=== PATIENT | male | born 1965 | race Caucasian/White ===

== ENCOUNTER 2017-12-21 13:59 | Emergency (ER) | payer BC, OTHER ==
[2017-12-21 14:07] VITALS: TEMP 98.1
[2017-12-21] MEDS ORDERED: NS 1,000 ML IV ONE (14:13)
[2017-12-21] MEDS ORDERED: LORazepam 2 MG/ML INJ IVP ONE (14:13)
--- NOTE | 2017-12-21 14:13 | EDPHY ---
H & P Stated Complaint: fast heart rate/palpitations earlier today Time Seen by Provider: 12/21/17 14:13 HPI/ROS: HPI: This is a 52-year-old male who presents with Chief Complaint: fast heart rate/palpitations earlier today Location: Mid sternum Quality: Palpitations Duration: 3-5 hours prior to arrival Signs and Symptoms: no shortness of breath at rest, no shortness of breath on exertion, no cough, no chest pain, + cardiac awareness, no lower extremity edema , no wheezing, no orthopnea, no paroxysmal nocturnal dyspnea, no fever, no injury/trauma, no hemoptysis, no carpal pedal spasms, no nausea no vomiting, no diaphoresis Timing: Acute, lasted approximately 1 hr, resolved Severity: Moderate Context: Patient has a history asthma presents with a 2nd episode in 1 week ago of racing heart measures on his [employer] I phone 130-140 beats per minute after his spin class approximately 3-5 hours prior to arrival. He was accompanied by cardiac awareness and some chest pressure. Denies any fever/ shortness of breath/nausea/vomiting/diaphoresis/radiation of pain. Patient reports that he flew to [facility] approximately 1 week ago. When he was in his so tell room Wednesday evening he felt his heart rate racing which is similar to today. Again his heart rate was between 130-140 beats per minute. He admits he did not drink hardly any water that day. and him both report that he is under considerable stress with work. They own 2 software companies. Patient reports a similar incident happened approximately 8 years ago in [facility]. He had negative laboratory workup and an outpatient echocardiogram that was unremarkable per patient. Denies any family cardiac history. Modifying Factors: None Comment: ROS: see HPI Constitutional: No fever, no chills, no weight loss Eyes: No blurred vision Respiratory: No shortness of breath, no cough Cardiovascular: No chest pain,+ palpitations, no lower extremity edema Gastrointestinal: No nausea, no vomiting, no diarrhea Genitourinary: No dysuria Extremities: No myalgias Neurologic: No weakness, no numbness Skin: No rashes Hematologic: No bruising, no bleeding MEDICAL/SURGICAL/SOCIAL HISTORY: Medical history: Asthma. Surgical history: Denies Social history: . Employed. Family history no cardiac disease. CONSTITUTIONAL: Over where pleasant and cooperative adult white male, awake and alert, no obvious distress HEENT: Atraumatic and normocephalic, PERRL, EOMI. Tympanic membranes clear. Oropharynx clear, no exudate and moist pink mucosa. Airway patent. No lymphadenopathy. No meningismus. No carotid bruits. Cardiovascular: Normal S1/S2, regular rate, regular rhythm, without murmur rub or gallop. PULMONARY/CHEST: Symmetrical and nontender. Clear to auscultation bilaterally. Good air movement. No accessory muscle usage. ABDOMEN: Soft, protuberant, nondistended, nontender, no rebound, no guarding, no peritoneal signs, no masses or organomegaly. No CVAT. EXTREMITIES: 2/2 pulses, strength 5/5, no deformities, no clubbing, no cyanosis or edema. NEUROLOGICAL: no focal neuro deficits. GCS 15. SKIN: Warm and dry, no erythema. no rash. Good capillary refill. Source: Patient Exam Limitations: No limitations - Personal History Current Tetanus Diphtheria and Acellular Pertussis (TDAP): Yes - Medical/Surgical History Hx Asthma: Yes Other PMH: asthma - Social History Smoking Status: Never smoked Constitutional: Initial Vital Signs Temperature (C) 36.7 C 12/21/17 14:05 Heart Rate 83 12/21/17 14:05 Respiratory Rate 16 12/21/17 14:05 Blood Pressure 151/91 H 12/21/17 14:05 O2 Sat (%) 95 12/21/17 14:05 O2 Delivery Mode Room Air Allergies/Adverse Reactions: No Known Allergies Allergy (Unverified 12/21/17 14:04) Home Medications: Medication Instructions Recorded Mometasone 220Mcg Inhaler [Asmanex 1 puffs IH DAILY 12/21/17 Inh (*)] Medical Decision Making - Diagnostics EKG Interpretation: 12 lead EKG: Indication: Palpitation Rhythm: Normal sinus rhythm, rate 82 beats per minute [place]: Normal Intervals: Normal QRS: Normal ST segments: Normal INTERPRETATION: No acute ischemic changes The 12 lead EKG was interpreted by myself and with attending. Imaging Results: Imaging Impressions Chest X-Ray 12/21/17 14:14 Impression: No acute abnormality. ED Course/Re-evaluation: EKG, chest x-ray, labs, oral medications ordered Vital signs reviewed and stable; given 1 L normal saline, aspirin, 1 mg IV Ativan upon arrival SADIQ risk factor low. Suspect will follow up outpatient with Cardiology for nuclear stress test and cardiac risk factor modification. Chest x-ray my read shows no signs of effusion, opacity, widened mediastinum, pneumothorax. Labs reviewed and grossly unremarkable including troponin x 2 No signs of anemia/electrolyte imbalance/thyroid disease/ACS/pulmonary embolism/ arrhythmia Outpatient Cardiology follow-up for Holter monitor and or nuclear stress test Reassessed patient at discharge denies chest pain/palpitations. This patient was seen under the supervision of my secondary supervising physician. I evaluated care for this patient independently. Differential Diagnosis: Chest pain including but not limited to myocardial ischemia, pulmonary embolus, chest wall pain, pleural inflammation and pulmonary infectious causes. - Data Points Laboratory Results: Laboratory Results 12/21/17 14:49 12/21/17 14:49 12/21/17 12/21/17 12/21/17 16:45 14:49 14:49 WBC RBC Hgb Hct MCV MCH MCHC RDW Plt Count MPV Neut % (Auto) Lymph % (Auto) [place] % (Auto) Eos % (Auto) Baso % (Auto) Nucleat RBC Rel Count Absolute Neuts (auto) Absolute Lymphs (auto) Absolute Monos (auto) Absolute Eos (auto) Absolute Basos (auto) Absolute Nucleated RBC Immature Gran % Immature Gran # PT 13.5 SEC SEC (12.0-15.0) INR 1.01 (0.83-1.16) APTT 28.8 SEC SEC (23.0-38.0) D-Dimer 0.31 ug/mLFEU ug/mLFEU (0.00-0.50) Sodium 144 mEq/L mEq/L (135-145) Potassium 3.6 mEq/L mEq/L (3.5-5.2) Chloride 107 mEq/L mEq/L (97-110) Carbon Dioxide 24 mEq/l mEq/l (22-31) Anion Gap 13 mEq/L mEq/L (8-16) BUN 18 mg/dL mg/dL (7-23) Creatinine 1.1 mg/dL mg/dL (0.7-1.3) Estimated GFR > 60 Glucose 89 mg/dL mg/dL (70-100) Calcium 9.2 mg/dL mg/dL (8.5-10.4) Magnesium 1.8 mg/dL mg/dL (1.6-2.3) Troponin I < 0.012 ng/mL ng/mL < 0.012 ng/mL ng/mL (0.000-0.034) (0.000-0.034) TSH 4.640 uIU/mL uIU/mL (0.465-4.680) 12/21/17 14:49 WBC 8.95 10^3/uL 10^3/uL (3.80-9.50) RBC 5.17 10^6/uL 10^6/uL (4.40-6.38) Hgb 15.6 g/dL g/dL (13.7-17.5) Hct 44.3 % % (40.0-51.0) MCV 85.7 fL fL (81.5-99.8) MCH 30.2 pg pg (27.9-34.1) MCHC 35.2 g/dL g/dL (32.4-36.7) RDW 12.8 % % (11.5-15.2) Plt Count 204 10^3/uL 10^3/uL (150-400) MPV 11.4 fL fL (8.7-11.7) Neut % (Auto) 69.0 % % (39.3-74.2) Lymph % (Auto) 22.7 % % (15.0-45.0) [place] % (Auto) 6.7 % % (4.5-13.0) Eos % (Auto) 1.0 % % (0.6-7.6) Baso % (Auto) 0.2 % L % (0.3-1.7) Nucleat RBC Rel Count 0.0 % % (0.0-0.2) Absolute Neuts (auto) 6.17 10^3/uL 10^3/uL (1.70-6.50) Absolute Lymphs (auto) 2.03 10^3/uL 10^3/uL (1.00-3.00) Absolute Monos (auto) 0.60 10^3/uL 10^3/uL (0.30-0.80) Absolute Eos (auto) 0.09 10^3/uL 10^3/uL (0.03-0.40) Absolute Basos (auto) 0.02 10^3/uL 10^3/uL (0.02-0.10) Absolute Nucleated RBC 0.00 10^3/uL 10^3/uL (0-0.01) Immature Gran % 0.4 % % (0.0-1.1) Immature Gran # 0.04 10^3/uL 10^3/uL (0.00-0.10) PT INR APTT D-Dimer Sodium Potassium Chloride Carbon Dioxide Anion Gap BUN Creatinine Estimated GFR Glucose Calcium Magnesium Troponin I TSH Medications Given: Discontinued Medications Aspirin (Aspirin) 324 mg PO EDNOW ONE Stop: 12/21/17 14:23 Last Admin: 12/21/17 14:46 Dose: 324 mg Sodium Chloride (Ns) 1,000 mls @ 0 mls/hr IV EDNOW ONE; Wide Open PRN Reason: Protocol Stop: 12/21/17 14:14 Last Admin: 12/21/17 14:46 Dose: 1,000 mls Lorazepam (Ativan Injection) 1 mg IVP EDNOW ONE Stop: 12/21/17 14:14 Last Admin: 12/21/17 16:20 Dose: Not Given Departure - Departure Disposition: Home, Routine, Self-Care Clinical Impression: Atypical chest pain, Palpitations Condition: Good Instructions: Heart Palpitations (ED), Holter Monitoring (ED), Noncardiac Chest Pain (ED) Additional Instructions: Please call Cardiology for follow-up in the next 5-7 days. It would benefit you to have cardiac risk factor modification and evaluate for candidacy for Holter monitor and nuclear stress test. Avoid any caffeine. Return to the ER immediately if you experience new, continued or worsened chest pain, chest pain that radiates, chest pain accompanied by exertion or associated with shortness of breath, sweating, nausea, dizziness, back pain, or any other symptoms that concern you. Referrals: Rikki Zamora MD [Primary Care Provider] - As per Instructions Frandy Crum MD [Medical Doctor] - As per Instructions
--- NOTE | 2017-12-21 14:20 | CPEKG ---
Heart Rate: 82 RR Interval: 732 P-R Interval: 180 QRSD Interval: 94 QT Interval: 376 QTC Interval: 439 P [place]: 53 QRS [place]: 4 T Wave [place]: 16 EKG Severity - NORMAL ECG - EKG Impression: SINUS RHYTHM Electronically Signed By: Paula Haro 21-Dec-2017 20:28:12
[2017-12-21] MEDS ORDERED: ASPIRIN 81 MG CHEWABLE TAB PO ONE (14:22)
[2017-12-21 14:57] LABS: PLATELET COUNT 204 10^3/uL (150-400)
[2017-12-21 15:13] LABS: INR 1.01 (0.83-1.16); PROTIME(PATIENT) 13.5 SEC (12.0-15.0)
[2017-12-21 17:56] VITALS: BP 110/77; PULSE 72; RESP 16; O2SAT 94
== END 2017-12-21 17:54 | disposition home or self-care (01) ==
DX: R07.89 Other chest pain (principal); R00.2 Palpitations; J45.909 Unspecified asthma, uncomplicated; E86.9 Volume depletion, unspecified